=== PATIENT | male | born 1970 | race Hispanic/Latino ===

== ENCOUNTER 2022-04-29 21:08 | Emergency (ER) | payer OTHER ==
[~2022-04-29] VITALS: Ht 160 cm; Wt 77.6 kg
[2022-04-29 22:57] VITALS: BP 124/65
[2022-04-29] MEDS ORDERED: BENZONATATE 100 MG CAPSULE PO ONE (23:00)
[2022-04-29] MEDS ORDERED: BENZ200C53 PO (23:17)
== END 2022-04-29 23:38 | disposition home or self-care (01) ==
LOC: EDH 21:08
DX: R05.9 Cough, unspecified (principal); I10 Essential (primary) hypertension; E11.9 Type 2 diabetes mellitus without complications; Z20.822 Contact with and (suspected) exposure to COVID-19
CPT/HCPCS: 99283; 87635; 87880; 87804 ×2; C9803